=== PATIENT | female | born 1935 | race Hispanic/Latino ===

== ENCOUNTER → 2018-06-22 | Outpatient (CLI) | payer OTHER ==
[~2018-06-22] VITALS: Ht 152.4 cm; Wt 49.0 kg
[~2018-06-22] MED LIST: REGADENOSON 0.4 MG/5 ML PF SYG IVP SCH
== END | disposition home or self-care (01) ==
LOC: SHCH 07:41
PROVIDERS: ATTEND Internal Medicine Cardiovascular Disease
DX: R07.9 Chest pain, unspecified (principal); R06.09 Other forms of dyspnea
CPT/HCPCS: 78452; 93017; 96374; A9500 ×2; J2785

== ENCOUNTER → 2018-06-24 | Outpatient (CLI) | payer OTHER | END | disposition home or self-care (01) | LOC: SHCH 12:38 | PROVIDERS: ATTEND Internal Medicine Cardiovascular Disease | DX: I87.2 Venous insufficiency (chronic) (peripheral) (principal) | CPT/HCPCS: 93970 ==

== ENCOUNTER → 2019-05-19 | Outpatient (CLI) | payer OTHER ==
[~2019-05-19] MED LIST changes: +GADODIAMIDE 10 MMOL/20 ML VIAL IV ONE; -REGADENOSON 0.4 MG/5 ML PF SYG IVP SCH
== END | disposition home or self-care (01) ==
LOC: RAH 13:56
PROVIDERS: ATTEND Family Medicine
DX: H49.12 Fourth [trochlear] nerve palsy, left eye (principal); R51 Headache
CPT/HCPCS: 70553; A9579

== ENCOUNTER → 2019-10-13 | Outpatient (CLI) | payer OTHER | END | disposition home or self-care (01) | LOC: SHCH 10:44 | PROVIDERS: ATTEND Internal Medicine Cardiovascular Disease | DX: I87.2 Venous insufficiency (chronic) (peripheral) (principal) | CPT/HCPCS: 93970 ==

== ENCOUNTER 2021-03-06 18:42 | Emergency (ER) | payer MEDICARE, OTHER ==
[~2021-03-06] VITALS: Ht 147.3 cm; Wt 44.9 kg
[2021-03-06 18:45] VITALS: BP 200/70
[2021-03-06] MEDS ORDERED: NEOMY SULF/BACITRA/POLYMYXIN B 1 EACH PACKET TP ONE (21:00)
[2021-03-06] MEDS ORDERED: AMOXICILLIN 500 MG CAPSULE PO ONE (21:00)
[2021-03-06] MEDS ORDERED: TETANUS/DIPHTHERIA TOXOID [ADULT] 0.5 ML VIAL IM ONE (21:00)
[2021-03-06] MEDS ORDERED: AMOX500C2 PO (21:27)
[2021-03-06] MEDS ORDERED: ACETAMINOPHEN 325 MG TAB PO ONE (21:45)
== END 2021-03-06 21:50 | disposition home or self-care (01) ==
LOC: EDH 18:42
DX: S02.2XXA Fracture of nasal bones, initial encounter for closed fracture (principal); S80.211A Abrasion, right knee, initial encounter; Z88.6 Allergy status to analgesic agent; Z79.899 Other long term (current) drug therapy; W01.198A Fall on same level from slipping, tripping and stumbling with subsequent striking against other object, initial encounter; Y93.89 Activity, other specified; Y92.89 Other specified places as the place of occurrence of the external cause; Y99.8 Other external cause status
CPT/HCPCS: 70450; 70486; 90471; 90714

== ENCOUNTER → 2021-11-05 | Outpatient (CLI) | payer MEDICARE ==
[~2021-11-05] MED LIST changes: +AMOX500C2 PO; -GADODIAMIDE 10 MMOL/20 ML VIAL IV ONE; +REGADENOSON 0.4 MG/5 ML PF SYG IVP SCH
== END | disposition home or self-care (01) ==
LOC: SHCH 08:16
PROVIDERS: ATTEND Internal Medicine Cardiovascular Disease
DX: I20.9 Angina pectoris, unspecified (principal); R06.09 Other forms of dyspnea; R07.9 Chest pain, unspecified
CPT/HCPCS: 78452; 93017; 96374; A9500 ×2; J2785

== ENCOUNTER → 2024-08-20 | Outpatient (CLI) | payer MEDICARE ==
[~2024-08-20] MED LIST changes: -REGADENOSON 0.4 MG/5 ML PF SYG IVP SCH
[2024-08-20 15:18] LABS: CREATININE 1.3 mg/dL (0.5-1.0)
[2024-08-20 17:38] LABS: POTASSIUM 6.3 mmol/L (3.5-5.1)
== END | disposition home or self-care (01) ==
LOC: LAB 10:00
PROVIDERS: ATTEND Internal Medicine Cardiovascular Disease
DX: I10 Essential (primary) hypertension (principal)
CPT/HCPCS: 36415; 80048

== ENCOUNTER → 2024-09-07 | Outpatient (CLI) | payer MEDICARE ==
[~2024-09-07] MED LIST changes: +IOHEXOL 350 MG/ML 100ML INFUS..BTL IV ONE
--- NOTE | 2024-09-07 13:20 | HMCIMG ---
CT CARDIAC ANGIO W/CONT. CCTA REASON: OTHER FORMS OF DYSPNEA COMPARISON: None TECHNIQUE: Images are obtained through the heart in the axial plane before and during bolus IV contrast infusion, 100 cc Omnipaque 350. 2-D and 3-D multiplanar reconstruction images were then performed. The injection had to be repeated once due to motion artifact on the first sequence, total contrast volume was 200 cc. FINDINGS: This dictation is for the noncardiac findings only. Cardiac and coronary artery findings are reported separately. Visualized portions of the lungs are clear. There is normal-appearing pulmonary interstitium. There is no hilar or mediastinal lymphadenopathy. Chest wall structures appear unremarkable. IMPRESSION: 1. Unremarkable noncardiac portions of CT cardiac angiography.
== END | disposition home or self-care (01) ==
LOC: RAH 08:50
PROVIDERS: ATTEND Internal Medicine Cardiovascular Disease
DX: R06.09 Other forms of dyspnea (principal)
CPT/HCPCS: 75574; Q9967

== ENCOUNTER → 2024-10-23 | Outpatient (CLI) | payer MEDICARE ==
[~2024-10-23] MED LIST changes: -IOHEXOL 350 MG/ML 100ML INFUS..BTL IV ONE
--- NOTE | 2024-10-25 08:01 | HMCSR ---
APPROVED REPORT Left Lower Extremity Venous Study for DVT., Venous Competence. Indications Lower Extremity Pain: Left , Lower Extremity Edema: Left, i87.1,i87.2 Vein Imaging CFV (R): Normal flow, augmentation and compression. No evidence of DVT. 11.1mm 1511ms of reflux. CF V (L): Normal flow, augmentation and compression. No evidence of DVT. 8.2mm 1056ms of reflux. SFJ (L): Normal flow, augmentation and compression. No evidence of DVT. FEM (L): Normal flow, augmentation and compression. No evidence of DVT. POP (L): Normal flow, augmentation and compression. No evidence of DVT. DFV (L): Normal flow, augmentation and compression. No evidence of DVT. PTV (L): Normal flow, augmentation and compression. No evidence of DVT. Peroneals (L): Normal flow, augmentation and compression. No evidence of DVT. Technologist Impression Deep veins of the left lower extremity appear patent and compressible without thrombus, including con tralateral CFV. Deep venous reflux noted in the LCFV and RCFV. No evidence of superficial venous insufficiency. LGSV jucntion 4.5mm 428ms thigh 2.2mm 256ms knee 2.9mm 0.0ms calf 2.1mm 0.0ms LSSV prox 1.8mm 0.0ms mid 0.6mm 0.0ms Conclusion Severe deep venous reflux noted of bilateral common femoral veins Clinical correlation recommended Consider formal venography with intravascular ultrasound if clinically indicated Conclusion Severe deep venous reflux noted of bilateral common femoral veins Clinical correlation recommended Consider formal venography with intravascular ultrasound if clinically indicated
== END | disposition home or self-care (01) ==
LOC: SHCH 14:21
PROVIDERS: ATTEND Internal Medicine Cardiovascular Disease
DX: I87.2 Venous insufficiency (chronic) (peripheral) (principal); I82.402 Acute embolism and thrombosis of unspecified deep veins of left lower extremity
CPT/HCPCS: 93971

== ENCOUNTER → 2024-11-03 | Outpatient (CLI) | payer MEDICARE ==
[~2024-11-03] MED LIST changes: +ASPI-1443 PO; +FERR-72 PO; +HYDR50TA37 PO; +ISOS60TA77 PO; +LOSA50TA64 PO; +OMEP20CA12 PO; +PRAV20TA4 PO; +SPIR25TA6 PO
[2024-11-03 16:15] LABS: BASOPHILS # (AUTO) 0.04 K/uL (0.00-0.20); EOSINOPHILS # (AUTO) 0.05 K/uL (0.00-0.70); EOSINOPHILS % (AUTO) 1.2 % (0.0-8.0); HEMATOCRIT 30.3 % (36-48); IMMATURE GRANULOCYTE ABSOLUTE 0.01 K/uL (0-1); LYMPHOCYTES # (AUTO) 0.8 K/uL (1.0-4.8); LYMPHOCYTES % (AUTO) 18.8 % (21.0-51.0); MEAN CORPUSCULAR HEMOGLOBIN 31.3 pg (27.0-33.0); MONOCYTES # (AUTO) 0.3 K/uL (0.1-1.0); MONOCYTES % (AUTO) 7.1 % (3.0-13.0); NEUTROPHILS # (AUTO) 2.9 K/uL (1.8-7.7); NEUTROPHILS % (AUTO) 71.7 % (40.0-77.0); PLATELET COUNT (AUTO) 243 K/uL (130-400); RED CELL DISTRIBUTION WIDTH 14.8 % (11.0-15.5); WHITE BLOOD COUNT (AUTO) 4.1 K/uL (4.8-10.8)
== END | disposition home or self-care (01) ==
LOC: LAB 11:33
PROVIDERS: ATTEND Internal Medicine Cardiovascular Disease
DX: I10 Essential (primary) hypertension (principal); R06.02 Shortness of breath
CPT/HCPCS: 36415; 83880; 84484; 85025; 85378

== ENCOUNTER 2024-11-04 12:58 | Observation (INO) | payer MEDICARE ==
[~2024-11-04] VITALS: Ht 147.3 cm; Wt 39.0 kg
[~2024-11-04 12:58] MED LIST changes: -ASPI-1443 PO; -FERR-72 PO; -HYDR50TA37 PO; -ISOS60TA77 PO; -LOSA50TA64 PO; -OMEP20CA12 PO; -PRAV20TA4 PO; -SPIR25TA6 PO
[2024-11-04 15:13] LABS: BASOPHILS # (AUTO) 0.03 K/uL (0.00-0.20); BASOPHILS % (AUTO) 0.6 % (0.0-5.0); EOSINOPHILS # (AUTO) 0.05 K/uL (0.00-0.70); HEMATOCRIT 28.9 % (36-48); IMMATURE GRANULOCYTE ABSOLUTE 0.02 K/uL (0-1); LYMPHOCYTES # (AUTO) 0.7 K/uL (1.0-4.8); MEAN CORPUSCULAR HEMOGLOBIN 30.7 pg (27.0-33.0); MEAN CORPUSCULAR HGB CONC 31.5 g/dL (32.0-36.0); MEAN CORPUSCULAR VOLUME 97.6 fL (79-99); MONOCYTES # (AUTO) 0.4 K/uL (0.1-1.0); NEUTROPHILS # (AUTO) 3.6 K/uL (1.8-7.7); PLATELET COUNT (AUTO) 220 K/uL (130-400); RED BLOOD CELL COUNT(AUTO) 2.96 MIL/uL (4.00-5.50); RED CELL DISTRIBUTION WIDTH 14.7 % (11.0-15.5); WHITE BLOOD COUNT (AUTO) 4.8 K/uL (4.8-10.8)
--- NOTE | 2024-11-04 15:14 | HMCIMG ---
Exam Type: US VENOUS DOPPLER BILATERAL Clinical Information: swelling Comparison: None Findings: The examination shows normal deep venous system. There is normal compressibility at all levels. There is no intraluminal clot. There is no occlusion. Adequate response is obtained on augmentation. Impression: No evidence of DVT.
[2024-11-04 15:21] LABS: CREATININE 1.1 mg/dL (0.5-1.0); POTASSIUM 4.9 mmol/L (3.5-5.1)
[2024-11-04 15:23] LABS: INR <= 0.93 (0.85-1.15); PROTHROMBIN TIME 10.5 SEC (9.6-11.6)
[2024-11-04 15:24] LABS: PARTIAL THROMBOPLASTIN TIME 27.3 SEC (26.3-35.5)
[2024-11-04] MEDS ORDERED: IOHEXOL-350 75 ML VIAL IV ONE (15:29)
[2024-11-04 15:30] LABS: MAGNESIUM 2.2 mg/dL (1.80-2.40)
[2024-11-04 15:38] LABS: B-TYPE NATRIURETIC PEPTIDE 557 pg/mL (0-100)
--- NOTE | 2024-11-04 15:46 | HMCIMG ---
Exam Type: CHEST 1VW Clinical Information: swelling Comparison: None Findings: The lungs are clear of infiltrates. The heart is normal in size. The bony and soft tissue structures of the chest are unremarkable. Impression: Clear lungs.
[2024-11-04 16:02] LABS: D-DIMER 1761 ng/mL (0-500)
--- NOTE | 2024-11-04 16:03 | HMCIMG ---
CT angiogram chest CLINICAL INDICATION: r/o PE COMPARISON: None. CT Dose Index (CTDI): 113.50 mGy Dose Length Product (DLP): 1408.10 total mGy PROTOCOL: Contrast: 100 cc of Isovue-370, injected IV, no complications Examination is done at 2.5 millimeter volumetric acquisition after contrast administration. Photography is done at 5 millimeter thick intervals for the thorax. FINDINGS: There is no evidence of pulmonary embolism. The airway is intact. The trachea and major bronchi are unremarkable. No pulmonary infiltrates or mass lesions are seen. No pleural effusions are identified. The exam of the ricardo and mediastinum is unremarkable. No evidence of hilar enlargement is seen. The aorta shows no aneurysmal dilatation or significant atheromatous calcification. There is no thoracic aortic dissection. No significant brachiocephalic vascular abnormalities are seen. The heart is unremarkable. It is not enlarged. No significant coronary arterial calcifications are seen. There is no pericardial effusion. The rib cage appears unremarkable. The soft tissues of the chest wall are unremarkable. The dorsal spine shows no significant abnormalities. Limited evaluation of the upper abdomen demonstrates no gross abnormalities. IMPRESSION: No evidence of pulmonary embolism. This study was performed using dose reduction techniques to include automated exposure control and/or adjustment of the mA and/or kV according to patient size.
--- NOTE | 2024-11-04 16:33 | ERN ---
General Chief Complaint: Abnormal Labs Stated Complaint: SENT BY [facility] History of Present Illness Initial Comments 89-year-old female [facility] and further workup. patient was being evaluated for some leg swelling mostly in the left leg. Was found to have an elevated D-dimer so was sent here for workup pulmonary embolism versus fluid overload. Patient reports some orthopnea and some exertional dyspnea. she reports some left lower leg swelling, which she reports she has had before in the past but it has been persistent. She does take a diuretic at home. No other symptoms. Allergies: Coded Allergies: naproxen (Unverified Allergy, Unknown, 06/19/18) Home Meds Active Scripts Amoxicillin (Amoxicillin) 500 Mg Capsule, 500 MG PO TID for 10 Days, #30 CAP 0 Refills Prov:JORGE MARTINEZ MD 03/06/21 Past Medical History Past Medical History: High Cholesterol, Heart Disease, Hypertension Past Surgical History: Unknown ROS Dictation CONSTITUTIONAL: No chills, no fever, no weakness, no diaphoresis, no malaise. HEAD/FACE: No signs of trauma. EENT: No eye pain, no blurred vision, no tearing, no double vision, no ear pain, no ear discharge, no nose pain, no nasal congestion, no throat pain, no throat swelling, no mouth pain. RESPIRATORY: Mild dyspnea and orthopnea, left lower leg swelling CARDIOVASCULAR: No chest pain, no edema, no palpitations, no syncope. GASTROINTESTINAL/ABDOMINAL: No abdominal pain, no constipation, no diarrhea, no nausea, no vomiting. GENITOURINARY: No abnormal discharge, no dysuria, no frequent urination, no hematuria. No complaints of pain in the genitals. MUSCULOSKELETAL: No back pain, no gout, no joint pain, no joint swelling, no muscle pain, no muscle stiffness, no neck pain. INTEGUMENTARY: No change in color, no change in hair/nails, no dryness, no lesion, no lumps, no rash. NEUROLOGICAL/PSYCH: No anxiety, not depressed, no emotional problem, no headache, no numbness, no pre-existing deficit, no history of seizures, no tremors, no weakness. HEMATOLOGIC/LYMPHATIC: Not anemic, no history of blood clots, no apparent bleeding, no bruising, glands not swollen. All Systems Negative, Except as Noted. Physical Exam Physical Exam Dictation VITAL SIGNS: Reviewed. GENERAL APPEARANCE: Alert, oriented x3, no acute distress, EYES: PERRL, pink conjunctivas, eyelid no trauma, anterior chamber clear. EARS: Pinnas intact and no signs of trauma or erythema. Ear canals clear and no discharge. TMs no erythema. NOSE: No discharge, no bleeding. OROPHARYNX: Mouth normal, teeth no caries, tongue pink. Pharynx clear, no erythema. Tonsils no exudates, no abscesses noted. Mucous membrane moist. NECK: Supple, non-tender, no thyromegaly, no masses, no JVD, no bruits. BREAST: Deferred. CHEST: No tenderness, no crepitus, no paradoxical movement, no retractions. LUNGS: Clear, well-ventilated, symmetric, no rales, no wheezing, no rhonchi, no stridor, good breath sounds bilaterally. HEART: Regular rate, regular rhythm, no murmur, no gallops. VASCULAR: No peripheral edema. ABDOMEN: Soft, positive bowel sounds, nondistended, no guarding, nontender, no rebound, no masses no hepatomegaly, no splenomegaly, no Godoy's sign, no hernias. RECTAL: Deferred. GENITAL: Deferred. NEUROLOGICAL: Normal speech, gross motor function intact, gross sensory function intact. MUSCULOSKELETAL: Neck nontender, full range of motion, back nontender, full range of motion. Left lower leg 2+ edema pitting EXTREMITIES: Nontender, full range of motion. SKIN: Color pink, dry, no turgor, no rash, no lacerations, no abrasions, no contusions. LYMPHATICS: Deferred. Results Laboratory and Microbiology Lab and Micro Result Laboratory Tests Test 11/04/24 15:10 White Blood Count 4.8 K/uL (4.8-10.8) Red Blood Count 2.96 MIL/uL (4.00-5.50) L Hemoglobin 9.1 g/dL (12.0-16.0) L Hematocrit 28.9 % (36-48) L Mean Corpuscular Volume 97.6 fL (79-99) Mean Corpuscular Hemoglobin 30.7 pg (27.0-33.0) Mean Corpuscular Hemoglobin Concent 31.5 g/dL (32.0-36.0) L Red Cell Distribution Width 14.7 % (11.0-15.5) Platelet Count 220 K/uL (130-400) Mean Platelet Volume 10.1 fL (7.5-10.5) Immature Granulocyte % (Auto) 0.4 % (0-1) Neutrophils (%) (Auto) 75.0 % (40.0-77.0) Lymphocytes (%) (Auto) 14.0 % (21.0-51.0) L Monocytes (%) (Auto) 9.0 % (3.0-13.0) Eosinophils (%) (Auto) 1.0 % (0.0-8.0) Basophils (%) (Auto) 0.6 % (0.0-5.0) Neutrophils # (Auto) 3.6 K/uL (1.8-7.7) Lymphocytes # (Auto) 0.7 K/uL (1.0-4.8) L Monocytes # (Auto) 0.4 K/uL (0.1-1.0) Eosinophils # (Auto) 0.05 K/uL (0.00-0.70) Basophils # (Auto) 0.03 K/uL (0.00-0.20) Absolute Immature Granulocyte (auto 0.02 K/uL (0-1) Nucleated Red Blood Cells 0.0 % (0.0-0.19) Prothrombin Time 10.5 SEC (9.6-11.6) Prothromb Time International Ratio <= 0.93 (0.85-1.15) Activated Partial Thromboplast Time 27.3 SEC (26.3-35.5) D-Dimer Quantitative (PE/DVT) 1761 ng/mL (0-500) *H Sodium Level 137 mmol/L (136-145) Potassium Level 4.9 mmol/L (3.5-5.1) Chloride Level 103 mmol/L (101-111) Carbon Dioxide Level 28 mmol/L (21-32) Blood Urea Nitrogen 37 mg/dL (7-18) H Creatinine 1.1 mg/dL (0.5-1.0) H Glomerular Filtration Rate Calc 48 mL/min (>90) Random Glucose 94 mg/dL (70-105) Total Calcium 8.3 mg/dL (8.5-10.1) L Magnesium Level 2.20 mg/dL (1.80-2.40) Total Creatine Kinase 38 U/L (21-232) Troponin I High Sensitivity 63 ng/L (4-50) *H B-Type Natriuretic Peptide 557 pg/mL (0-100) H Triglycerides Level 62 mg/dL (30-200) Cholesterol Level 155 mg/dL (<200) LDL Cholesterol 75 mg/dL (0-99) HDL Cholesterol 76 mg/dL (35-85) MDM CC: Left lower leg swelling, sent by the [facility] for an elevated D- dimer. Historian: Patient Comorbidities: Advanced age, DLD, HTN, CAD Vital signs: Mild hypertension 150/46 otherwise unremarkable. EKG: Sinus rhythm rate of 71 normal axis good R-wave progression intervals are stable no STEMI. Independently interpreted by me. Labs independently ordered and interpreted by me: CBC shows normocytic anemia hemoglobin 9.1. Coagulation studies does show an elevated D-dimer of 1761. Chemistry panel shows a mildly elevated troponin is 62, mild CKD. BNP elevated 557. Bilateral venous ultrasound shows no signs of DVT per my independent interpretation Chest x-ray per my independent interpretation shows no cardiomegaly, possible vascular congestion. CTA per my independent interpretation shows no pulmonary embolism. Patient clinically has a bit fluid overloaded, has a an elevated BNP and signs of volume overload. We will give a dose of IV Lasix and admit for further treatment and evaluation and Cardiology consultation. Consultation: Hospitalist for admission ED Course Orders Procedure Category Date Status Time Cbc With Differential LAB 11/04/24 Complete 13:54 Prothrombin Time With LAB 11/04/24 Complete INR 13:54 B-Type Natriuretic LAB 11/04/24 Complete Peptide 13:54 Lipid Panel LAB 11/04/24 Complete 13:54 D-Dimer LAB 11/04/24 Complete 13:54 Chest 1vw RAD 11/04/24 Resulted 13:54 12 Lead Ekg Tracing- EKG 11/04/24 Logged Technical 13:54 Magnesium LAB 11/04/24 Complete 13:54 Creatine Kinase, Total LAB 11/04/24 Complete 13:54 Troponin I High LAB 11/04/24 Complete Sensitivity 13:54 Urinalysis Profile LAB 11/04/24 Logged 13:54 Partial LAB 11/04/24 Complete Thromboplastin Time 13:54 Basic Metabolic Panel LAB 11/04/24 Complete 13:54 Ct Chest Pe Protocol CT 11/04/24 Resulted Wwo Cont 13:54 Us Venous Doppler US 11/04/24 Resulted Bilateral 13:54 Iohexol (Omnipaque) PHA 11/04/24 Complete 15:29 Furosemide 40mg Vial PHA 11/04/24 In Process (Lasix 40mg Vial) 16:30 Current Medications Medications (Trade) Dose Ordered Sig/Therese Route PRN Reason Start Time Stop Time Status Last Admin Dose Admin Furosemide (LASix 40MG VIAL) 40 mg ONCE IV 11/04/24 16:30 11/04/24 21:30 Iohexol (Omnipaque) 75 ml STK-MED ONCE IV 11/04/24 15:29 11/04/24 15:29 DC Vital Signs Date Time Temp Pulse Resp B/P (MAP) Pulse Ox O2 Delivery O2 Flow Rate FiO2 11/04/24 15:39 74 18 141/62 98 Room Air* 0 21 11/04/24 14:20 98.2 77 18 150/46 98 Room Air 0 DX & DISP Disposition: Inpatient Departure Impression: Primary Impression: Pulmonary edema Additional Impressions: Normocytic anemia, Elevated troponin, Leg swelling Condition: Stable Referrals: CAROLYN SAUL MD (PCP) LIAT COLE DO Nov 04, 2024 16:33
[2024-11-04] MEDS: furoSEMIDE 40MG VIAL IV SCH (16:36)
--- NOTE | 2024-11-04 16:52 | NUR ---
DR. JOSE LEBRON BY TO SEE PT.
[2024-11-04 17:02] LABS: APPEARANCE,URINE CLEAR (CLEAR); BILIRUBIN,URINE NEGATIVE (NEGATIVE); COLOR,URINE COLORLESS (YELLOW); GLUCOSE, URINE (UA) NEGATIVE (NEGATIVE); KETONES,URINE NEGATIVE (NEGATIVE); LEUKOCYTE ESTERASE ,URINE NEGATIVE Leu/uL (NEGATIVE); NITRATE,URINE NEGATIVE (NEGATIVE); OCCULT BLOOD,URINE NEGATIVE (NEGATIVE); PH,URINE 6.5 (5.0-8.0); PROTEIN,URINE 30 mg/dL (NEGATIVE); UROBILINOGEN,URINE 0.2 mg/dL (0.2-1.0)
[2024-11-04 17:03] LABS: ADD UA MICROSCOPIC YES
[2024-11-04 17:06] LABS: RBC,URINE 0-1 /HPF (0-1); SQUAMOUS EPITHELIAL CELL,UR RARE /HPF (0-2); WBC,URINE 0-1 /HPF (0-1)
[2024-11-04] MEDS ORDERED: acetaMINOPHEN 500 MG TABLET PO PRN (17:30)
[2024-11-04] MEDS ORDERED: hydrALAZine 20MG/ML VIAL IV PRN (17:30)
--- NOTE | 2024-11-04 17:58 | HP ---
[facility] HISTORY AND PHYSICAL Date of Service: Nov 04, 2024 Time of Service: 17:58 HISTORY OF PRESENT ILLNESS: Date of service: 11/04/2024 This is a 89-year-old female past medical history of hypertension, hyperlipidemia, coronary artery disease presented to the hospital secondary to shortness of breaths and left lower extremity swelling. 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 Patient was noted to have elevated D-dimer in the and was recommended to go to the ER evaluation. Patient states for the last one month she has been having shortness of breath he is present at rest and exertion. She endorses orthopnea denied any PND. Denied any recent weight gain. Her lower extremity swelling has been going on for more than a month and usually her left lower extremity is more swollen than right. She denied any fever, chills, chest pain, , abdominal pain. Denied any falls, syncopal episode. She uses a walker for ambulation she also has a productive cough with sputum denied any fevers at home. Secondary to non improving symptoms patient thereafter came to the ED for further evaluation. Labs in the ED were notable white count of 4.8, hemoglobin was 9.1, platelet count was 220k, sodium was 137, potassium was 4.9, creatinine was 1.1, BUN was 37, BNP was 557, LFTs were unremarkable, troponin was mildly elevated. Chest x-ray Chest x-ray did not show any acute infiltrates. Patient underwent CT chest which was negative for PE. Venous Doppler was also negative. REVIEW OF SYSTEMS CONSTITUTIONAL: Denies fevers, chills, or night sweats. No unintentional weight loss reported. NEUROLOGICAL: Denies headache, amaurosis fugax, motor weakness, sensory deficit, vertigo/spinning sensation, gait abnormalities, or tremors. ENT: No hearing loss, otalgia, otorrhea, rhinitis, rhinorrhea, hoarseness, or sore throat. CARDIOVASCULAR: Positive for orthopnea and dyspnea on exertion. Denied any palpitations, chest pain, PND PULMONARY: Positive for cough, shortness of breath, sputum production. GASTROINTESTINAL: Denies any type of dysphagia to either liquids or solids. Denies nausea, vomiting, pyrosis, early satiety, abdominal pain, diarrhea, constipation, or changes in stool consistency or caliber. Denies coffee-ground emesis, hematemesis, hematochezia, or melanotic stools. GENITOURINARY: Denies frequency, urgency, nocturia, hematuria or incontinence (Storage/Irritative symptoms.) Low urinary stream, straining to void, urinary intermittency or hesitancy, splitting of the voiding stream, terminal dribbling. ENDOCRINOLOGIC: Denies polyuria, polydipsia, polyphagia or heat/cold intolerances. HEMATOLOGIC: Denies thrombophilia/previous clots, or coagulopathy/bleeding disorders. ONCOLOGIC: Denies personal history of malignancy. DERMATOLOGIC: Denies rashes or pruritus. PSYCHIATRIC: Denies any suicidal or homicidal ideation. Denies hallucinations. PAST MEDICAL HISTORY: Hypertension, hyperlipidemia, coronary artery disease PAST SURGICAL HISTORY: Denied any previous surgical history PAST SOCIAL HISTORY: Denied smoking, alcohol, drug use FAMILY HISTORY: Denied any pertinent family history Coded Allergies: naproxen (Unverified Allergy, Unknown, 06/19/18) PHYSICAL EXAM GENERAL APPEARANCE: The patient is awake, alert, and oriented, in no acute cardiopulmonary distress. NEUROLOGICAL: Cranial nerves II-XII grossly intact. Motor is 5/5 in bilateral upper and lower extremities proximal to distal. No sensory deficits. HEENT: Face is symmetric. Pupils are equal and reactive. Extraocular movements are intact. NECK: Supple. No JVD. No thyromegaly. No submental, submandibular, pre- /postauricular, occipital or supraclavicular lymphadenopathy. CHEST: Normal chest expansion. No Telemetry. LUNGS: Positive for left-sided crackles CARDIOVASCULAR: Regular. S1 and S2 normal. No appreciable rubs, murmurs or gallops. ABDOMEN: Soft, nontender, and nondistended. There is no rebound, voluntary guarding, or rigidity. : Deferred. No Delgado. EXTREMITIES: 3+ edema asymmetric on the left lower extremity. Right lower extremity is wrinkled SKIN: No skin breakdown. Vital Sign (Last 24 Hours) 11/04/24 16:31 Temp 98.2 Pulse 74 Resp 18 B/P (MAP) 182/64 Pulse Ox 98 O2 Delivery Room Air* O2 Flow Rate 0 FiO2 21 LABS: Laboratory: Test 11/04/24 16:53 11/04/24 15:10 Range/Units Urine Color COLORLESS YELLOW Urine Appearance CLEAR CLEAR Urine pH 6.5 5.0-8.0 Urine Specific [place] 1.018 1.001-1.031 Urine Protein 30 H NEGATIVE mg/dL Urine Glucose (UA) NEGATIVE NEGATIVE mg/dL Urine Ketones NEGATIVE NEGATIVE mg/dL Urine Occult Blood NEGATIVE NEGATIVE Urine Nitrate NEGATIVE NEGATIVE Urine Bilirubin NEGATIVE NEGATIVE mg/dL Urine Urobilinogen 0.2 0.2-1.0 mg/dL Urine Leukocyte Esterase NEGATIVE NEGATIVE Kate/uL Urine RBC 0-1 0-1 /HPF Urine WBC 0-1 0-1 /HPF Urine Squamous Epithelial Cells RARE 0-2 /HPF Urine Bacteria None None Seen /HPF White Blood Count 4.8 4.8-10.8 K/uL Red Blood Count 2.96 L 4.00-5.50 MIL/uL Hemoglobin 9.1 L 12.0-16.0 g/dL Hematocrit 28.9 L 36-48 % Mean Corpuscular Volume 97.6 79-99 fL Mean Corpuscular Hemoglobin 30.7 27.0-33.0 pg Mean Corpuscular Hemoglobin Concent 31.5 L 32.0-36.0 g/dL Red Cell Distribution Width 14.7 11.0-15.5 % Platelet Count 220 130-400 K/uL Mean Platelet Volume 10.1 7.5-10.5 fL Immature Granulocyte % (Auto) 0.4 0-1 % Neutrophils (%) (Auto) 75.0 40.0-77.0 % Lymphocytes (%) (Auto) 14.0 L 21.0-51.0 % Monocytes (%) (Auto) 9.0 3.0-13.0 % Eosinophils (%) (Auto) 1.0 0.0-8.0 % Basophils (%) (Auto) 0.6 0.0-5.0 % Neutrophils # (Auto) 3.6 1.8-7.7 K/uL Lymphocytes # (Auto) 0.7 L 1.0-4.8 K/uL Monocytes # (Auto) 0.4 0.1-1.0 K/uL Eosinophils # (Auto) 0.05 0.00-0.70 K/uL Basophils # (Auto) 0.03 0.00-0.20 K/uL Absolute Immature Granulocyte (auto 0.02 0-1 K/uL Nucleated Red Blood Cells 0.0 0.0-0.19 % Prothrombin Time 10.5 9.6-11.6 SEC Prothromb Time International Ratio <= 0.93 0.85-1.15 Activated Partial Thromboplast Time 27.3 26.3-35.5 SEC D-Dimer Quantitative (PE/DVT) 1761 *H 0-500 ng/mL Sodium Level 137 136-145 mmol/L Potassium Level 4.9 3.5-5.1 mmol/L Chloride Level 103 101-111 mmol/L Carbon Dioxide Level 28 21-32 mmol/L Blood Urea Nitrogen 37 H 7-18 mg/dL Creatinine 1.1 H 0.5-1.0 mg/dL Glomerular Filtration Rate Calc 48 >90 mL/min Random Glucose 94 70-105 mg/dL Total Calcium 8.3 L 8.5-10.1 mg/dL Magnesium Level 2.20 1.80-2.40 mg/dL Total Creatine Kinase 38 21-232 U/L Troponin I High Sensitivity 63 *H 4-50 ng/L B-Type Natriuretic Peptide 557 H 0-100 pg/mL Triglycerides Level 62 30-200 mg/dL Cholesterol Level 155 <200 mg/dL LDL Cholesterol 75 0-99 mg/dL HDL Cholesterol 76 35-85 mg/dL Current Medications Medications (Trade) Dose Ordered Sig/Therese Route PRN Reason Start Time Stop Time Status Last Admin Dose Admin Acetaminophen (TYLenol 500MG TAB) 500 mg Q6H PRN PO MILD PAIN (1-3) 11/04/24 17:30 12/04/24 17:29 Furosemide (LASix 40MG VIAL) 40 mg ONCE IV 11/04/24 16:30 11/04/24 21:30 11/04/24 16:36 40 MG Heparin Sodium (Porcine) (HEParin 5,000 UNIT VIAL) 5,000 unit Q12H SQ 11/04/24 21:00 12/04/24 20:59 Hydralazine HCl (APRESOLine 20MG INJ) 10 mg Q6H PRN IV ADMINISTER FOR SBP > 180 11/04/24 17:30 12/04/24 17:29 DIAGNOSTICS / RADIOLOGY: [ ] ASSESSMENT: Asymmetric left lower extremity swelling POA differential venous reflux dysfunction versus lymphedema versus heart failure Shortness of breath differential CHF exacerbation versus ILD versus URI Suspected CHF exacerbation Anemia Elevated D-dimer Troponin elevation Frailty Hypertension Hyperlipidemia History of venous dysfunction PLAN: - patient to be admitted to medical-surgical with telemetry -in reference to left lower extremity swelling. Patient had a venous reflux study performed on 10/23 which showed severe deep venous reflux bilateral common femoral veins. Swelling likely in setting of venous dysfunction. We will also obtain echocardiogram to rule out heart failure. Check urine to assess for proteinuria. -in reference to D-dimer elevation. CT chest and venous Doppler were negative. We will start heparin for DVT prophylaxis - in reference to troponin elevation. Will trend troponin q6h. obtain echo. pt denied any chest pain -check COVID, flu, TSH, A1c, procaine -patient given dose of Lasix. We will monitor urine output -obtain home medications which will be reconciled once available -obtain a sputum sample -further orders per hospitalization course. Advanced Care Planning Which of the following were discussed: Hospice care: Yes __ No _x_ Therapeutic options: Yes __ No __ Advance directives: Yes __ No __ Other discussions: Pt is full code Discussed with who?: patient (Patient, family or surrogates) Voluntary nature of this service was explained to the patient? Yes _x_ No __ Amount of time spent: 25 minutes JERAMIE Mcclelland MD, MD Nov 04, 2024 17:58
[2024-11-04 18:15] LABS: THYROID STIMULATING HORMONE 3.29 uIU/mL (0.36-3.74)
[2024-11-04] MEDS: hydrALAZine 25MG TABLET PO SCH (18:20)
--- NOTE | 2024-11-04 18:24 | CONS ---
[facility] CARDIOLOGY CONSULTATION NOTE Date Patient Seen: Nov 04, 2024 Time of Visit: 18:20 Reason for Consultation: [lower extremity edema ] History of Present Illness: [ This is a 89-year-old female past medical history of hypertension, hyperlipidemia, coronary artery disease presented to the hospital secondary to shortness of breaths and left lower extremity swelling. 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 Patient was noted to have elevated D-dimer in the and was recommended to go to the ER evaluation. Patient states for the last one month she has been having shortness of breath he is present at rest and exertion. Labs in the ED were notable white count of 4.8, hemoglobin was 9.1, platelet count was 220k, sodium was 137, potassium was 4.9, creatinine was 1.1, BUN was 37, BNP was 557, LFTs were unremarkable, troponin was mildly elevated. Chest x- ray Chest x-ray did not show any acute infiltrates. Patient underwent CT chest w hich was negative for PE. Venous Doppler was also negative. ] Past Medical History: [ ] Past Surgical History: [ ] Family History: [ ] Social History: [ ] Habits: [Never] smoker. [Denies] alcohol consumption. [Denies] illicit drug use Home Meds: [ ] Current Meds: [ ] Review of Systems: CONST: [No fever, fatigue, or weight changes.] EYES: [No recent vision problems.] ENT: [No congestion, ear pain, or sore throat.] C/V: [No chest pain, palpitations, or edema.] RESP: [No cough, congestion, wheezing or shortness of breath.] GI: [No abdominal pain, nausea, vomiting, constipation, or diarrhea.] : [No incontinence or dysuria.] SKIN: [No rash.] NEURO: [No headache, focal numbness or weakness, dizziness, or seizures.] PSYCH: [No depression or anxiety.] HEME: [No abnormal bruising or bleeding.] LYMPH: [No swollen glands.] Physical Examination: GENERAL: [No acute distress.] HEAD: [Normal with no signs of head trauma.] EYES: [PERRLA, EOMI, conjunctiva and sclera normal.] ENT: [Hearing grossly intact, normal oropharynx.] NECK: [Supple without JVD. There is no tenderness, lymphadenopathy, or masses. No thyromegaly. Normal carotid upstrokes without bruits.] LUNGS: [Clear breath sounds bilaterally. There are right basilar rales one third of the way up the chest. No wheezes, or rhonchi.] HEART: [Normal rate and rhythm. Normal S1 and S2 without mumurs, gallop or rub.] VASC: [Peripheral pulses +2 bilaterally.] ABD: [Bowel sounds normal, soft, nontender, no masses, no organomegaly. No audible bruits.] : [Not examined] LYMPH: [No lymphadenopathy noted.] EXT: [1+ LLE edema.] SKIN: [No rashes or lesions noted.] NEURO: [Awake, alert, and oriented x3. No focal sensory or strength deficits noted.] Vital Signs (last 8hr) Date Time Temp Pulse Resp B/P (MAP) Pulse Ox O2 Delivery O2 Flow Rate FiO2 11/04/24 16:31 98.2 74 18 182/64 98 Room Air* 0 21 11/04/24 15:39 74 18 141/62 98 Room Air* 0 21 11/04/24 14:20 98.2 77 18 150/46 98 Room Air 0 Laboratory: [ ] Hematology Labs: Test 11/04/24 15:10 Range/Units White Blood Count 4.8 4.8-10.8 K/uL Red Blood Count 2.96 L 4.00-5.50 MIL/uL Hemoglobin 9.1 L 12.0-16.0 g/dL Hematocrit 28.9 L 36-48 % Mean Corpuscular Volume 97.6 79-99 fL Mean Corpuscular Hemoglobin 30.7 27.0-33.0 pg Mean Corpuscular Hemoglobin Concent 31.5 L 32.0-36.0 g/dL Red Cell Distribution Width 14.7 11.0-15.5 % Platelet Count 220 130-400 K/uL Mean Platelet Volume 10.1 7.5-10.5 fL Immature Granulocyte % (Auto) 0.4 0-1 % Neutrophils (%) (Auto) 75.0 40.0-77.0 % Lymphocytes (%) (Auto) 14.0 L 21.0-51.0 % Monocytes (%) (Auto) 9.0 3.0-13.0 % Eosinophils (%) (Auto) 1.0 0.0-8.0 % Basophils (%) (Auto) 0.6 0.0-5.0 % Neutrophils # (Auto) 3.6 1.8-7.7 K/uL Lymphocytes # (Auto) 0.7 L 1.0-4.8 K/uL Monocytes # (Auto) 0.4 0.1-1.0 K/uL Eosinophils # (Auto) 0.05 0.00-0.70 K/uL Basophils # (Auto) 0.03 0.00-0.20 K/uL Absolute Immature Granulocyte (auto 0.02 0-1 K/uL Nucleated Red Blood Cells 0.0 0.0-0.19 % Chemistry Labs: Test 11/04/24 15:10 Range/Units Sodium Level 137 136-145 mmol/L Potassium Level 4.9 3.5-5.1 mmol/L Chloride Level 103 101-111 mmol/L Carbon Dioxide Level 28 21-32 mmol/L Blood Urea Nitrogen 37 H 7-18 mg/dL Creatinine 1.1 H 0.5-1.0 mg/dL Glomerular Filtration Rate Calc 48 >90 mL/min Random Glucose 94 70-105 mg/dL Hemoglobin A1c 6.0 4.0-6.0 % Estimated Average Glucose (eAG) 126 70-126 mg/dL Total Calcium 8.3 L 8.5-10.1 mg/dL Magnesium Level 2.20 1.80-2.40 mg/dL Total Creatine Kinase 38 21-232 U/L Troponin I High Sensitivity 63 *H 4-50 ng/L C-Reactive Protein, Quantitative 0.80 0.5-3.0 mg/L B-Type Natriuretic Peptide 557 H 0-100 pg/mL Triglycerides Level 62 30-200 mg/dL Cholesterol Level 155 <200 mg/dL LDL Cholesterol 75 0-99 mg/dL HDL Cholesterol 76 35-85 mg/dL Procalcitonin < 0.05 L 0.05-0.5 ng/mL Thyroid Stimulating Hormone (TSH) 3.29 0.36-3.74 uIU/mL Coagulation Labs: Test 11/04/24 15:10 Range/Units Prothrombin Time 10.5 9.6-11.6 SEC Prothromb Time International Ratio <= 0.93 0.85-1.15 Activated Partial Thromboplast Time 27.3 26.3-35.5 SEC D-Dimer Quantitative (PE/DVT) 1761 *H 0-500 ng/mL Diagnostics / Radiology: [Copy/Paste Echos/Imaging Report here] Assessment: [ LLE edema Dyspnea on exertion Elevated troponin] Plan: [ #LLE edema #HODGE -2d echo ordered -recommend lower extremity venous US outpatient to rule out May-Thurner's on LLE, or consider inpatient venogram -CTA chest negative for PE and lower extremity venous US negative for DVT -given slightly elevated troponin, will trend only given no active chest pain Anna Verde MD] ANNA VERDE MD Nov 04, 2024 18:24
[2024-11-04 18:25] LABS: SARS-CoV-2, RNA, NAAT NEGATIVE SARS CoV-2 (NEGATIVE)
[2024-11-04] MEDS ORDERED: LOSA50TA64 PO (18:26)
[2024-11-04] MEDS ORDERED: HYDR50TA37 PO (18:26)
[2024-11-04] MEDS ORDERED: SPIR25TA6 PO (18:26)
[2024-11-04] MEDS ORDERED: FERR-72 PO (18:26)
[2024-11-04] MEDS ORDERED: ISOS60TA77 PO (18:26)
[2024-11-04] MEDS ORDERED: PRAV20TA4 PO (18:26)
[2024-11-04] MEDS ORDERED: OMEP20CA12 PO (18:26)
[2024-11-04 18:37] LABS: INFLUENZA TYPE A Negative For Type A (NEGATIVE); INFLUENZA TYPE B Negative For Type B (NEGATIVE)
--- NOTE | 2024-11-04 19:34 | EKG ---
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
[2024-11-04 20:19] LABS: CREATININE,URINE RANDOM 6.47 mg/dL (30-135); PROTEIN,URINE RANDOM 46.8 mg/dL (0-11.9)
[2024-11-04] MEDS ORDERED: HEParin 5,000 UNIT VIAL SQ SCH (21:00)
--- NOTE | 2024-11-04 21:15 | NUR ---
Trudy LUNA SUPERVISOR MAILS WAS INFORMED THAT TROPONIN IS NOW 254, A RISE FROM 63 EARLIER. PT REMAINS PAIN FREE. PER SUPERVISOR MAILS, ADD CARDIOLOGY CONSULT. WAS INFORMED THAT DR. JOSE LEBRON WAS CONTACTED EARLIER TODAY AND SAW PT IN ED. STATES NO NEW ORDERS AT THIS TIME. REPORT CHANGES IN STATUS.
[2024-11-05 00:55] VITALS: O2SAT 97
--- NOTE | 2024-11-05 02:53 | NUR ---
PT CARE ASSUMED AT THIS TIME
--- NOTE | 2024-11-05 07:17 | NUR ---
REPORT GIVEN TO JORDI VUONG AT THIS TIME
[2024-11-05 07:53] LABS: BASOPHILS # (AUTO) 0.05 K/uL (0.00-0.20); BASOPHILS % (AUTO) 1.2 % (0.0-5.0); EOSINOPHILS # (AUTO) 0.08 K/uL (0.00-0.70); EOSINOPHILS % (AUTO) 1.9 % (0.0-8.0); IMMATURE GRANULOCYTE ABSOLUTE 0.01 K/uL (0-1); LYMPHOCYTES # (AUTO) 0.7 K/uL (1.0-4.8); LYMPHOCYTES % (AUTO) 17.3 % (21.0-51.0); MEAN CORPUSCULAR HEMOGLOBIN 30.5 pg (27.0-33.0); MEAN CORPUSCULAR HGB CONC 31.6 g/dL (32.0-36.0); MEAN CORPUSCULAR VOLUME 96.6 fL (79-99); MONOCYTES # (AUTO) 0.4 K/uL (0.1-1.0); MONOCYTES % (AUTO) 9.2 % (3.0-13.0); NEUTROPHILS % (AUTO) 70.2 % (40.0-77.0); PLATELET COUNT (AUTO) 246 K/uL (130-400); RED BLOOD CELL COUNT(AUTO) 3.21 MIL/uL (4.00-5.50); RED CELL DISTRIBUTION WIDTH 14.6 % (11.0-15.5); WHITE BLOOD COUNT (AUTO) 4.2 K/uL (4.8-10.8)
[2024-11-05 08:00] VITALS: BP 124/47; PULSE 87; RESP 18; TEMP 97.8
[2024-11-05 08:33] LABS: % IRON SATURATION 21.5 % (22-44)
[2024-11-05 08:54] LABS: ALBUMIN 3.2 g/dL (3.5-5.0); BILIRUBIN,TOTAL 0.4 mg/dL (0.2-1.0); POTASSIUM 4.5 mmol/L (3.5-5.1); TOTAL PROTEIN, SERUM 6.9 g/dL (6.0-8.3)
[2024-11-05] MEDS: ISOSORBIDE MONO 60MG SR TAB PO SCH (09:00)
[2024-11-05] MEDS: HEParin 5,000 UNIT VIAL SQ SCH (09:00)
[2024-11-05] MEDS: SPIRONOLACTONE 25 MG TAB PO SCH (09:01)
[2024-11-05] MEDS: PANTOPrazole 40 MG TAB DR PO SCH (09:01)
[2024-11-05] MEDS: LoSARTan 50 MG TABLET PO SCH (09:01)
[2024-11-05 09:20] LABS: RETICULOCYTE % (AUTO) 0.82 % (0.42-2.23)
[2024-11-05 09:30] VITALS: O2SAT 97
--- NOTE | 2024-11-05 10:33 | DS ---
Discharge Summary Hospital Course Summary: This is a 89-year-old female past medical history of hypertension, hyperlipidemia, coronary artery disease presented to the hospital secondary to shortness of breaths and left lower extremity swelling. 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 Patient was noted to have elevated D-dimer in the and was recommended to go to the ER evaluation. Labs in the ED were notable white count of 4.8, hemoglobin was 9.1, platelet count was 220k, sodium was 137, potassium was 4.9, creatinine was 1.1, BUN was 37, BNP was 557, LFTs were unremarkable, troponin was mildly elevated. Chest x-ray Chest x-ray did not show any acute infiltrates. Patient underwent CT chest which was negative for PE. Venous Doppler was also negative. Patient evaluated by rubber goods assembler, cleared for discharge home. To follow up as an outpatient for further evaluation. At the time of my visit patient alert, following commands, hemodynamically stable, afebrile, saturating normal on room air, denies chest pain, no shortness a breath, no cough, no palpitations, no nausea, no vomiting, no abdominal pain. Daughter at bedside during my visit. Extruding Press Operator(s): Cardiology Assessment/Plan: Final diagnosis Asymmetric left lower extremity swelling resolved, DVT ruled out POA Shortness of breath differential CHF exacerbation versus ILD versus URI. Resolved Suspected CHF exacerbation Anemia Elevated D-dimer Troponin elevation Frailty Hypertension Hyperlipidemia History of venous dysfunction Discharge Instructions: Patient to follow up with rubber goods assembler as an outpatient and return to the hospital if condition changes. Patient agreed with plan understood the information provided. Home Medications: Active Scripts Amoxicillin (Amoxicillin) 500 Mg Capsule, 500 MG PO TID for 10 Days, #30 CAP 0 Refills Prov:JORGE MARTINEZ MD 03/06/21 Reported Medications Hydralazine HCl (Hydralazine HCl) 50 Mg Tablet, 1 TAB PO TID for 30 Days, #90 TAB 0 Refills 11/04/24 Omeprazole (Omeprazole) 20 Mg Capsule.dr, 1 CAP PO DAILY for 30 Days, #30 CAP 0 Refills 11/04/24 Ferrous Sulfate (Ferrous Sulfate) 325 Mg (65 Mg Iron) Tablet, 1 TAB PO BID for 30 Days, #60 TAB 0 Refills 11/04/24 Isosorbide Mononitrate (Isosorbide Mononitrate ER) 60 Mg Tab.er.24h, 1 TAB PO DAILY for 30 Days, #30 TAB 0 Refills 11/04/24 Pravastatin Sodium (Pravastatin Sodium) 20 Mg Tablet, 1 TAB PO HS for 30 Days, #30 TAB 0 Refills 11/04/24 Losartan Potassium (Losartan Potassium) 50 Mg Tablet, 1 TAB PO DAILY for 30 Days, #30 TAB 0 Refills 11/04/24 Spironolactone (Spironolactone) 25 Mg Tablet, 1 TAB PO DAILY for 30 Days, #30 TAB 0 Refills 11/04/24 Time spent arranging discharge: 31-60 minutes CHANDLER COELHO MD Nov 05, 2024 10:33
[2024-11-05] MEDS ORDERED: ASPI-1443 PO (10:38)
--- NOTE | 2024-11-05 10:54 | NUR ---
DCP: HOME Sw met with pt and her sister in law Deja Law [phone]. Pt is hard of hearing, PEDRITO provided information. Pt livs with her sister. Pt remains active and independent of all her ADLS. Pt has a walker, cane and w/c she uses as needed. no in home care services, HH or HD. PCP is Jac Yusuf and uses [facility] in [place] for rx. Pt and PEDRITO deny dc needs and pt will return home with family Addendum: 11/05/24 at 1058 by MARITZA GUAJARDO Amended: Links added.
--- NOTE | 2024-11-05 11:27 | HMCSR ---
APPROVED REPORT EXAM: Two-dimensional and M-mode echocardiogram with Doppler and color Doppler. INDICATION ICD: CHF exacerbation 2D Dimensions RVDd3.7 cmLVEF(%)62.3 (>50%)LVED Vol(simp.)76.3 mL IVSd0.7 (0.7-1.1cm)FS(%)33 %LVES Vol(simp.)24.8 mL LVDd4.2 (3.8-5.6cm)LA (2D)3.4 (1.6-4.0cm)LVEF(%, simp.)68 % PWd1.0 (0.7-1.1cm)Ao Root(2D)2.6 (2.0-3.7cm)LA ESV INDEX (4CH)46.50 mL/m2 IVSs0.7 cmLVOT diam1.8 (1.8-2.4cm)LA ESV INDEX (2CH)29.90 mL/m2 LVDs2.8 (2.5-4.0cm) PWs1.2 cm Deformation Strain Apical 422.0 % Apical 221.0 % Apical 322.0 % Global Jbgwdr89.0 % M-Mode Dimensions EPSS0.9 cm LA (MM)4.5 (1.6-4.0cm) Ao Root(MM)2.1 (2.0-3.7cm) Aortic Valve AoV VTI0.3 mAo Mean GR5.0 mmHgLVOT VTI0.29 m [place] (VMAX)2.2 cm2Al P1/2T417 msAVA (VTI) 2.2 cm2 Mitral Valve MV E Vmax81.0 cm/sDECEL Hqxx087 ms MV A Xruq374.7 cm/sP 1/2 T63 ms E/A ratio0.6MVA (PHT)3.5 cm2 TDI E/E' Ylmtrv03.2E/E' Zszqfvs04.9 Medial E' Peak V4.70 cm/sLateral E' Peak V5.10 cm/s Left Ventricle Left ventricular cavity size is normal. GLS -22%. There is normal LV segmental wall motion. There is normal left ventricular wall thickness. LVEF is 65-70%. The left ventricular diastolic function is no rmal. Right Ventricle The right ventricle is normal size. There is normal right ventricular wall thickness. The right ventr icular systolic function is normal. Atria The left atrium size is normal. The right atrium size is normal. Aortic Valve The aortic valve is normal in structure and function. Mild aortic regurgitation. There is no aortic v alvular stenosis. Mitral Valve The mitral valve is normal in structure and function. There is no mitral valve regurgitation noted. T here is no mitral valve stenosis. Tricuspid Valve The tricuspid valve is normal in structure and function. There is no tricuspid valve regurgitation no sim. Pulmonic Valve The pulmonary valve is normal in structure and function. There is no pulmonic valvular regurgitation. Great Vessels The aortic root is normal in size. The IVC is normal in size and collapses >50% with inspiration. Pericardium No pericardial effusion. Conclusion LVEF is 65-70%. GLS -22%. There is normal LV segmental wall motion. The right ventricular systolic function is normal. The right ventricle is normal size. Mild aortic regurgitation. No pericardial effusion.
--- NOTE | 2024-11-05 18:20 | PN ---
PROBLEM LIST: * Elevated D-dimer greater than 2000. * 2D echo on 11/05 with EF 65-70%, otherwise unremarkable. * Negative venous Dopplers. * CTA of the chest with no evidence of PE. * Venous insufficiency. * . * Hypertension. * Dyslipidemia. * Probably coronary CTA in 08/2024, suboptimal test due to respiratory difficulty. * Supply-demand ischemia. INTERVAL HISTORY: The patient feels much better today than yesterday. Breathing is better, is not back to normal. No chest discomfort or palpitations. No reports of leg edema. No reports of fever or bleeding. Daughter present at the bedside and said the patient has been having intermittent episodes of shortness of breath for some time, not necessarily worsening or more frequent. The patient had been attributing this to anxiety. OBJECTIVE: GENERAL: Thin, elderly female. VITAL SIGNS: Temperature 98.2, pulse 74, respirations 18, blood pressure 167/48. HEENT: Hearing intact. No facial asymmetry, nasal discharge or icterus. CARDIOVASCULAR: Rhythm and rate regular. No murmurs. No edema. RESPIRATORY: Grossly clear. No crackles, wheezes or rhonchi. GASTROINTESTINAL: Scaphoid. Otherwise, benign. EXTREMITIES: No amputations. Range of motion normal. NEUROLOGIC AND PSYCHIATRY: Awake, answering questions, following commands. No tremors or slurring. LABORATORY DATA: Notable for H and H of 10 and 31. Troponin 63 on admission, up to 354. TSH 3.9. Troponin peaking at 354. RADIOLOGY: 2D echo showing preserved EF 65-70%. CTA was negative for PE. Venous Dopplers negative for DVT. PLAN: The patient's studies have been unremarkable. She is feeling much better, if not back to normal. She is eager to leave the hospital and go home. Troponin elevations are not due to myocardial ischemia, but rather supply-demand process from elevated blood pressures into the 180's on admission. Continue her spironolactone, Cozaar, isosorbide, hydralazine, and atorvastatin. We will see her in the office in 2-3 weeks. TID: [id number] RECEIPT: [id number]
[2024-11-05] MEDS ORDERED: atorVAStatin 10 MG TABLET PO SCH (21:00)
== END 2024-11-05 11:45 | disposition home or self-care (01) ==
LOC: EDH 12:58 → INTOOBSV 17:29 → EDHIP 17:29
PROVIDERS: ADMIT Internal Medicine; ATTEND Internal Medicine
DX: D64.9 Anemia, unspecified (principal); Z20.822 Contact with and (suspected) exposure to COVID-19; R79.89 Other specified abnormal findings of blood chemistry; I11.9 Hypertensive heart disease without heart failure; M79.89 Other specified soft tissue disorders; J81.1 Chronic pulmonary edema; R06.02 Shortness of breath; R54 Age-related physical debility; R60.0 Localized edema; E78.00 Pure hypercholesterolemia, unspecified; F41.9 Anxiety disorder, unspecified; Z88.8 Allergy status to other drugs, medicaments and biological substances; Z79.899 Other long term (current) drug therapy
CPT/HCPCS: 99285; 83036; 84443; 82550; 84156; 82570; 83735; 84484 ×3; 80061; 80048; 83880; 85025 ×2; 85378; 85610; 85730; 87804 ×2; 86140; 81001; 36415 ×2; 87635; 71045; 71270; 93970; 96374; 93005; 84145; 96372; 80053; 82728; 82607; 93306; 93356; G0378 ×3; J1940; Q9967; J1644